=== PATIENT | male | born 2000 | race Caucasian/White ===

== ENCOUNTER → 2023-09-10 13:58 | Outpatient (REF) | payer OTHER, SELFPAY | LOC: RCS 13:58 | PROVIDERS: ATTENDING PHYSICIAN Internal Medicine Cardiovascular Disease; FAMILY PHYSICIAN Family Medicine | DX: Z86.79 Personal history of other diseases of the circulatory system (principal); R06.09 Other forms of dyspnea | CPT/HCPCS: 93306 ==

== ENCOUNTER → 2023-11-01 09:29 | Outpatient (REF) | payer OTHER, SELFPAY | LOC: RCS 09:29 | PROVIDERS: ATTENDING PHYSICIAN Internal Medicine Cardiovascular Disease; FAMILY PHYSICIAN Family Medicine | DX: Z86.79 Personal history of other diseases of the circulatory system (principal); R06.09 Other forms of dyspnea | CPT/HCPCS: 93225; 93226 ==